=== PATIENT | female | born 1965 | race Caucasian/White ===

== ENCOUNTER → 2019-07-20 | Outpatient (CLI) | payer OTHER ==
--- NOTE | 2019-07-20 12:43 | Diagnostic Imaging Report ---
Ultrasound of the Kidneys, 07/20/2019. Clinical History: Microscopic hematuria, UTI. Discussion: Sonographic evaluation of the kidneys is performed. Right kidney: 10.2 cm in length, normal in size, with cortical thickness of 2.4 cm. Normal cortical echogenicity. No mass. No shadowing calculus. No hydronephrosis. Left kidney: 10.6 cm in length, normal in size, with cortical thickness of 2.0 cm. Normal cortical echogenicity. No mass. No shadowing calculus. No hydronephrosis. Limited Doppler evaluation demonstrates normal color Doppler flow within bilateral renal vanessa. Fluid: No perinephric fluid. Bilateral ureteral jets are visualized. Bladder: Unremarkable. IMPRESSION: Normal sonographic evaluation of the kidneys. Signed by: Jaron Go MD on 07/20/2019 12:40 PM
== END ==
LOC: US 11:34
PROVIDERS: ATTEND Urology
DX: R31.29 Other microscopic hematuria (principal); N39.0 Urinary tract infection, site not specified
CPT/HCPCS: 76770